=== PATIENT | female | born 1970 | race Caucasian/White ===

== ENCOUNTER 2019-08-29 14:39 | Emergency (ER) | payer OTHER ==
[~2019-08-29] VITALS: Ht 162.6 cm; Wt 107.2 kg
[~2019-08-29 14:39] MED LIST: AMOX1TAB61 PO; ATOM100C PO; HYDR-2678 PO; MELA5TAB PO; METO50TA29 PO; OMEP20TA63 PO
[2019-08-29] MEDS ORDERED: IV NORMAL SALINE 1,000ML 1,000 ML IV ONE (15:15)
--- NOTE | 2019-08-29 15:18 | PHYS DOC ---
Past History Past Medical History: GERD, Hypertension, Urolithias, Other Additional Past Medical Histor: Meniere's disease Past Surgical History: Cholecystectomy, Smoking: Non-smoker Alcohol Use: Occasionally Drug Use: None Adult General Chief Complaint Chief Complaint: DIZZY/LIGHT HEADED HPI HPI Patient is a 49-year-old female who presents to the emergency department for evaluation. She states about an hour and a half prior to arrival, she began experiencing "vertigo". She has a history of recurrent vertigo episodes, and took a meclizine tablet (although she is uncertain of the dose, because a friend of hers, who also has dizziness, gave her the tablet), but states she vomited about 30 minutes after taking the tablet. She states that she has a mild headache, but she has a history of migraines, and the headache is not severe. She has had similar headaches with her vertigo episodes in the past, and has had several vertigo episodes in the past that are exactly the same as this current episode. She reports "ringing" in both of her ears. She does report having some fullness in the hearing of both of her ears. She is able to hear, however. She denies any vision changes, numbness, or weakness. She states initially she began feeling lightheaded, about an hour and a half ago, and went for a walk, but it was soon after that that the sense of rotation began. Head movements seem to worsen her dizziness. There are no alleviating factors to her symptoms Review of Systems Review of Systems Constitutional: Denies fever or chills [] Eyes: Denies change in visual acuity, redness, or eye pain [] HENT: Denies nasal congestion or sore throat [] Respiratory: Denies cough or shortness of breath [] Cardiovascular:The patient denies any shortness of breath, chest pain, palpitations, or orthopnea [] GI: Denies abdominal pain, nausea, vomiting, bloody stools or diarrhea [] : Denies dysuria or hematuria [] Musculoskeletal: Denies back pain or joint pain [] Integument: Denies rash or skin lesions [] Neurologic: Denies headache, focal weakness or sensory changes [] Endocrine: Denies polyuria or polydipsia [] All other systems were reviewed and found to be within normal limits, except as documented in this note. Current Medications Current Medications Current Medications Medications (Trade) Dose Ordered Sig/Leo Start Time Stop Time Status Last Admin Dose Admin Lorazepam (Ativan Inj) 2 mg STK-MED ONCE 08/29/19 15:11 08/29/19 15:12 DC Meclizine HCl (Antivert) 25 mg 1X ONCE 08/29/19 15:30 08/29/19 15:31 Methylprednisolone Sodium Succinate (SOLU-Medrol 125MG VIAL) 125 mg 1X ONCE 08/29/19 15:30 08/29/19 15:31 Ondansetron HCl (Zofran) 4 mg 1X ONCE 08/29/19 15:30 08/29/19 15:31 Sodium Chloride 1,000 ml @ 1,000 mls/hr 1X ONCE 08/29/19 15:15 08/29/19 16:14 Allergies Allergies Allergies Coded Allergies Type Severity Reaction Last Updated Verified morphine Allergy Mild VOMITING 09/03/15 No Physical Exam Physical Exam PHYSICAL EXAM: CONSTITUTIONAL: Well developed, well nourished HEAD: normocephalic, atraumatic EENT: PERRL, EOMI. Conjunctivae normal color, sclerae non-icteric; there is very mild nystagmus on leftward gaze. Moist mucous membranes. Hearing is grossly intact. Tympanic membranes are normal bilaterally. NECK: Supple, non-tender; no meningismus. LUNGS: Lungs CTA, breathing even and unlabored. Normal air movement. HEART: Regular rate and rhythm, no murmur CHEST: No deformity; non-tender ABDOMEN: The abdomen is soft, and non-tender, no masses or bruits. EXTREM: Normal ROM; no deformity, no calf tenderness. Normal pulses palpable in all extremities. There is no pedal edema. SKIN: No rash; no diaphoresis NEURO: Alert; normal speech and cognition; CN's grossly intact; strength grossly intact without focal deficit. [id number] and heel avila testing is normal. Visual donnelly are intact by confrontation. BACK: No CVA TTP. Current Patient Data Vital Signs Vital Signs Date Time Temp Pulse Resp B/P (MAP) Pulse Ox O2 Delivery O2 Flow Rate FiO2 08/29/19 14:40 97.6 86 20 98 Room Air 08/29/19 14:39 144/93 (110) Lab Results Laboratory Tests Test 08/29/19 15:11 White Blood Count 9.3 x10^3/uL Red Blood Count 4.50 x10^6/uL Hemoglobin 13.4 g/dL Hematocrit 41.0 % Mean Corpuscular Volume 91 fL Mean Corpuscular Hemoglobin 30 pg Mean Corpuscular Hemoglobin Concent 33 g/dL Red Cell Distribution Width 14.4 % Platelet Count 303 x10^3/uL Neutrophils (%) (Auto) 76 % Lymphocytes (%) (Auto) 16 % Monocytes (%) (Auto) 6 % Eosinophils (%) (Auto) 1 % Basophils (%) (Auto) 1 % Neutrophils # (Auto) 7.1 x10^3uL Lymphocytes # (Auto) 1.5 x10^3/uL Monocytes # (Auto) 0.6 x10^3/uL Eosinophils # (Auto) 0.1 x10^3/uL Basophils # (Auto) 0.1 x10^3/uL Sodium Level 140 mmol/L Potassium Level 3.8 mmol/L Chloride Level 104 mmol/L Carbon Dioxide Level 26 mmol/L Anion Gap 10 Blood Urea Nitrogen 11 mg/dL Creatinine 0.7 mg/dL Estimated GFR (Cockcroft-Gault) 88.6 BUN/Creatinine Ratio 16 Glucose Level 124 mg/dL Calcium Level 8.5 mg/dL Magnesium Level 2.0 mg/dL Total Bilirubin 0.3 mg/dL Aspartate Amino Transf (AST/SGOT) 14 U/L Alanine Aminotransferase (ALT/SGPT) 17 U/L Alkaline Phosphatase 72 U/L Troponin I Quantitative < 0.017 ng/mL Total Protein 7.2 g/dL Albumin 3.6 g/dL Albumin/Globulin Ratio 1.0 Current Medications Medications (Trade) Dose Ordered Sig/Leo Route PRN Reason Start Time Stop Time Status Last Admin Dose Admin Sodium Chloride 1,000 ml @ 1,000 mls/hr 1X ONCE IV 08/29/19 15:15 08/29/19 16:14 DC 08/29/19 15:23 Methylprednisolone Sodium Succinate (SOLU-Medrol 125MG VIAL) 125 mg 1X ONCE IV 08/29/19 15:30 08/29/19 15:31 DC 08/29/19 15:23 Lorazepam (Ativan Inj) 0.5 mg 1X ONCE IVP 08/29/19 15:30 08/29/19 15:31 DC 08/29/19 15:24 Meclizine HCl (Antivert) 25 mg 1X ONCE PO 08/29/19 15:30 08/29/19 15:31 DC 08/29/19 15:24 Ondansetron HCl (Zofran) 4 mg 1X ONCE IVP 08/29/19 15:30 08/29/19 15:31 DC 08/29/19 15:23 Lorazepam (Ativan Inj) 2 mg STK-MED ONCE .ROUTE 08/29/19 15:11 08/29/19 15:12 DC Prochlorperazine Edisylate (Compazine) 10 mg 1X ONCE IV 08/29/19 16:00 08/29/19 16:05 DC 08/29/19 16:03 Diphenhydramine HCl (Benadryl) 25 mg 1X ONCE IVP 08/29/19 16:00 08/29/19 16:05 DC 08/29/19 16:03 EKG EKG Normal sinus rhythm with a normal rate, normal axis, normal intervals, there are no acute ischemic ST/T changes.[] Radiology/Procedures Radiology/Procedures [] Course & Med Decision Making Course & Med Decision Making Pertinent Labs studies reviewed. (See chart for details) []5:20 PM: The patient's condition has significantly improved, she has no more dizziness is ambulatory without any difficulty or dizziness, and is able to tolerate by mouth without difficulty. I discussed test results, the need for close PCP follow-up as well as follow-up with her ENT for further evaluation and return precautions were discussed in detail. Dragon Disclaimer Dragon Disclaimer This electronic medical record was generated, in whole or in part, using a voice recognition dictation system. Departure Departure: Impression: Primary Impression: Vertigo Disposition: 01 HOME, SELF-CARE Condition: STABLE Referrals: CLINT MOSES DO (PCP) Patient Instructions: Nausea and Vomiting, Vertigo Scripts Prednisone (PREDNISONE) 20 Mg Tablet 40 MG PO DAILY for - for 4 Days, #8 TAB Prov: FABIANO MALLORY MD 08/29/19 Meclizine Hcl (MECLIZINE HCL) 25 Mg Tablet 1 TAB PO PRN TID for Dizziness, #30 TAB Prov: FABIANO MALLORY MD 08/29/19 Ondansetron (ONDANSETRON ODT) 4 Mg Tab.rapdis 1 TAB PO PRN Q6-8HRS for Nausea/vomiting, #15 TAB Prov: FABIANO MALLORY MD 08/29/19 FABIANO MALLORY MD Aug 29, 2019 15:18
[2019-08-29 15:23] LABS: BASO # 0.1 x10^3/uL (0.0-0.2); BASO % 1 % (0-3); EOS # 0.1 x10^3/uL (0.0-0.7); EOS % 1 % (0-3); HEMOGLOBIN 13.4 g/dL (12.0-15.5); LYMPH # 1.5 x10^3/uL (1.0-4.8); LYMPH % 16 % (24-48); MEAN CORPUSCULAR HEMOGLOBIN 30 pg (25-35); MEAN CORPUSCULAR HGB CONC 33 g/dL (31-37); MEAN CORPUSCULAR VOLUME 91 fL (79-100); MONO # 0.6 x10^3/uL (0.0-1.1); MONO % 6 % (0-9); NEUT # 7.1 x10^3uL (1.8-7.7); NEUT % 76 % (31-73); PLATELET COUNT 303 x10^3/uL (140-400); RED CELL DISTRIBUTION WIDTH 14.4 % (11.5-14.5); WHITE BLOOD COUNT 9.3 x10^3/uL (4.0-11.0)
[2019-08-29] MEDS ORDERED: methylPREDNISolone SOD SUCC PF 125 MG/2 ML VIAL. IV ONE (15:30)
[2019-08-29] MEDS ORDERED: ONDANSETRON PF 4 MG/2 ML VIAL. IVP ONE (15:30)
[2019-08-29] MEDS ORDERED: MECLIZINE 12.5 MG TABLET. PO ONE (15:30)
[2019-08-29 15:38] LABS: ALBUMIN 3.6 g/dL (3.4-5.0); CALCIUM 8.5 mg/dL (8.5-10.1); CREATININE 0.7 mg/dL (0.6-1.0); GFR 88.6; POTASSIUM 3.8 mmol/L (3.5-5.1); TOTAL BILIRUBIN 0.3 mg/dL (0.2-1.0); TOTAL PROTEIN 7.2 g/dL (6.4-8.2)
[2019-08-29] MEDS ORDERED: diphenhydrAMINE 50 MG/ML VIAL IVP ONE (16:00)
[2019-08-29] MEDS ORDERED: PROCHLORPERAZINE 10 MG/2 ML VIAL. IV ONE (16:00)
--- NOTE | 2019-08-29 16:28 | EKG ---
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
[2019-08-29 16:49] VITALS: BP 130/72
[2019-08-29] MEDS ORDERED: ONDA4TAB12 PO (17:20)
[2019-08-29] MEDS ORDERED: MECL25TA3 PO (17:20)
[2019-08-29] MEDS ORDERED: PRED20TA PO (17:20)
== END 2019-08-29 17:25 | disposition home or self-care (01) ==
LOC: ER 14:39
DX: R42 Dizziness and giddiness (principal); R51 Headache; R11.10 Vomiting, unspecified; K21.9 Gastro-esophageal reflux disease without esophagitis; I10 Essential (primary) hypertension; Z88.5 Allergy status to narcotic agent
CPT/HCPCS: 36415; 80053; 83735; 84484; 85025; 93005; 96361; 96374; 96375; 99285; J0780; J1200; J2060; J2405; J2930; J8597; J7030